=== PATIENT | male | born 1930 | race Caucasian/White ===

== ENCOUNTER 2019-06-04 07:53 | Inpatient (IN) | payer OTHER ==
[~2019-06-04] VITALS: Ht 152.4 cm; Wt 56.6 kg
[2019-06-04] VITALS (25 sets, daily range): BP systolic 82–126; BP diastolic 35–70
[~2019-06-04 07:53] MED LIST: METFORMIN HCL500 MG PO; ZYRTEC10 M4 PO
[2019-06-04 08:17] LABS: ABSOLUTE NEUTROPHILS 14.3 thou/uL (1.4-8.2); BASOPHILS 0.5 % (0.0-2.0); EOSINOPHILS 0.1 % (0.0-3.0); HEMATOCRIT 43.1 % (42.0-52.0); HEMOGLOBIN 13.9 gm/dL (14.0-18.0); LYMPHOCYTES 5.6 % (24.0-44.0); MCH 29.1 pg (26.0-34.0); MCHC 32.2 g/dL (28.0-37.0); MCV 90.5 fL (80.0-100.0); MONOCYTES 5.2 % (1.0-8.0); PLATELET COUNT 310 thou/uL (150-400); POLYS 88.6 % (36.0-66.0); RBC 4.77 mil/uL (4.50-6.00); RDW 14.5 % (10.5-14.5); WBC 16.1 thou/uL (4.0-11.0)
[2019-06-04 08:31] LABS: CALCIUM 9.5 mg/dL (8.5-10.1); CREATININE 1.8 mg/dL (0.7-1.3); POTASSIUM 4.4 mmol/L (3.5-5.1)
[2019-06-04 08:42] LABS: ALBUMIN 3.2 g/dL (3.4-5.0); MAGNESIUM 1.9 mg/dL (1.8-2.4); TOTAL BILIRUBIN 1.5 mg/dL (<0.1-1.0); TOTAL PROTEIN 7.5 g/dL (6.4-8.2)
[2019-06-04 08:45] LABS: TROPONIN-I 3.25 ng/mL (<0.06)
[2019-06-04 09:07] LABS: APTT 29.7 Seconds (24.5-32.8); INR 1.2
[2019-06-04 11:18] LABS: BE(vivo) -12.2 mmol/L (-2 to +3); HCO3 14.2 mmol/L (22.0-26.0); PCO2 34.4 mmHg (35.0-45.0); sO2 99.8 % (92.0-98.0)
[2019-06-04 11:19] LABS: pH 7.235 (7.360-7.450)
[2019-06-04 14:48] LABS: HCO3 18.7 mmol/L (22.0-26.0); PCO2 34.8 mmHg (35.0-45.0); PO2 245.7 mmHg (80.0-100.0); pH 7.349 (7.360-7.450); sO2 99.5 % (92.0-98.0)
[2019-06-04 14:59] LABS: CALCIUM 8.3 mg/dL (8.5-10.1); CREATININE 1.9 mg/dL (0.7-1.3); POTASSIUM 4.4 mmol/L (3.5-5.1)
--- NOTE | 2019-06-04 16:13 | NUR ---
VASCULAR ACCESS CONSULTED FPR PICC LINE BUT AFTER CHECKING WITH , CVAD PREFERED. DISCUSSED BENEFITS AND RISK WITH PT'S ,VERBALIZED UNDERSTANDING. RIJ WAS WIDELY PATENT WITH USG, HAD DIFFICULTY PASSING GUIDEWIRE ON 1ST ATTEMPT. HAD TO RESTICK RIJ. 25CM 6FR TL JACC INSERTED TO 6CM EXTERNAL WITH BRISK BR. STAT CXR ORDERED
--- NOTE | 2019-06-04 17:13 | NUR ---
CENTRAL LINE PULLED BACK FOR TOTAL OF 12CM EXTERNAL. 2ND CXR ORDERED STAT
--- NOTE | 2019-06-04 18:00 | NUR ---
CXR CONFIRMED RIJ IN SVC, RELEASED TO VANE DHALIWAL FOR IMMEDIATE USE PER PROTOCOL
--- NOTE | 2019-06-04 19:54 | NUR ---
PATIENT ADMITTED FROM [facility] POST-PROCEDURE AT 1035. BEDSIDE ASSESSMENT COMPLETED, FAMILY UPDATED ON PLAN. PATIENT ANXIOUS AND STARTED ON PROPOFOL. SINUS TACHYCARDIA ON TECHNICAL ARCHITECT. RIGHT GROIN SHEATH INTACT, VITAL SIGNS CLOSESLY MONITORED. HUA INSERTED IN [facility], PATIENT HAD NO OUTPUT THROUGHT THE SHIFT. DR. LAY MADE AWARE AND STATED HE WILL SEE PATIENT IN THE MORNING. DR. KRAFT AND DR. MULTANI UPDATED ON PATIENT'S CONDITION. PATIENT ON IV BLOOD PRESSURE SUPPORT TO KEEP MAP ABOVE 60. SPUTUM CULTURES ATEMPTED BUT WAS UNSUCCESSFUL. REPORT GIVEN TO ONCOMING RN. NO SIGNS OF ACUTE DISTRESS NOTED AT THIS TIME. WILL CONTINUE TO MONITOR.
[2019-06-04 21:36] LABS: URINE BILIRUBIN NEGATIVE (Negative); URINE BLOOD 3+ (Negative); URINE CLARITY CLEAR; URINE COLOR YELLOW; URINE GLUCOSE-RANDOM* NEGATIVE (Negative); URINE KETONES TRACE (Negative); URINE LEUKOCYTES-REFLEX NEGATIVE (Negative); URINE NITRITE-REFLEX NEGATIVE (Negative); URINE PROTEIN (DIPSTICK) 1+ (Negative); URINE UROBILINOGEN 0.2 E.U./dl (0.2-1.0)
[2019-06-04 21:49] LABS: CRYSTALS None Seen /LPF (None Seen); URINE RBC 3-10 Few /HPF (0-2)
[2019-06-04 21:50] LABS: BACTERIA-REFLEX 1-9 Few /HPF (None Seen); HYALINE CASTS 0-3 Few /LPF (None Seen); SQUAMOUS 4-10 Moderate /LPF (0-3); URINE WBC-REFLEX None Seen /HPF (0-5)
[2019-06-05] VITALS (72 sets, daily range): BP systolic 82–115; BP diastolic 40–65
[2019-06-05 05:02] LABS: ALBUMIN 2.5 g/dL (3.4-5.0); ANION GAP 11 mmol/L (7-16); BUN 31 mg/dL (7-18); CALCIUM 8.3 mg/dL (8.5-10.1); CHLORIDE 95 mmol/L (98-107); CHOLESTEROL 142 mg/dL (<200); CO2 24 mmol/L (21-32); CREATININE 2.1 mg/dL (0.7-1.3); GLUCOSE 136 mg/dL (74-106); HDL CHOLESTEROL 61 mg/dL (>40); LDL CHOLESTEROL 59 mg/dL (<100); SGOT 1243 U/L (15-37); SGPT 500 U/L (30-65); SODIUM 130 mmol/L (136-145); TC:HDL 2.3 Ratio (Not establshd); TOTAL BILIRUBIN 0.8 mg/dL (<0.1-1.0); TOTAL PROTEIN 6.4 g/dL (6.4-8.2); TRIGLYCERIDE 110 mg/dL (<150); VLDL 22 mg/dL (<40)
[2019-06-05 05:30] LABS: SERUM ASSESSMENT Clear
[2019-06-05 05:36] LABS: ABSOLUTE NEUTROPHILS 10.9 thou/uL (1.4-8.2); BASOPHILS 0.6 % (0.0-2.0); EOSINOPHILS 0.1 % (0.0-3.0); HEMOGLOBIN 12.6 gm/dL (14.0-18.0); LYMPHOCYTES 11.8 % (24.0-44.0); MCH 29.1 pg (26.0-34.0); MCHC 32.3 g/dL (28.0-37.0); MCV 90.2 fL (80.0-100.0); PLATELET COUNT 295 thou/uL (150-400); POLYS 76.5 % (36.0-66.0); RBC 4.32 mil/uL (4.50-6.00); WBC 14.2 thou/uL (4.0-11.0)
[2019-06-05 06:13] LABS: TROPONIN-I > 200.00 ng/mL (<0.06)
--- NOTE | 2019-06-05 06:40 | NUR ---
Received report and assumed patient care. Patient noted to be on Propofol and only responds to pain but does not open eyes. Patient is also on Levophed. Patient remained stable throughout and no acute changes were noted.
--- NOTE | 2019-06-05 10:31 | 2DMMODE ---
[facility] [place] [address] [address] 2 D/M-MODE ECHOCARDIOGRAM Name: ANDREA CRUZ Room #: 238-P ADM IN M.R.#: [id number] Admission: 06/04/19 Attend Phys: Clarence Garcia, Discharge: Date of : [birth year] Report #: [id number] THIS REPORT FOR: //name// APPROVED REPORT Study performed: 06/04/2019 10:02:51 EXAM: Comprehensive 2D, Doppler, and color-flow Echocardiogram Patient Location: [facility] Room #: 2 Status: stat BSA: 1.73 HR: 130 bpm BP: 130/68 mmHg Rhythm: Tachycardia Other Information Study Quality: Technically Limited Indications Aortic Valve Disease Mitral Valve Disease STEMI, S^P Code 2D Dimensions LVOT Diam: 17.94 (18-24mm) IVC: 21.00 mm Aortic Valve AoV Peak Harvey.: 3.06 m/s AO Peak Gr.: 37.35 mmHg LVOT Max P.02 mmHg AO Mean Gr.: 23.08 mmHg LVOT Mean P.01 mmHg AO V2 Mean: 2.33 m/s LVOT Max V: 0.71 m/s AO V2 VTI: 46.12 cm LVOT Mean V: 0.46 m/s SOCORRO (VTI): 0.61 cm2 LVOT V1 VTI: 11.13 cm SOCORRO Vmax: 0.59 cm2 SV (LVOT): 28.12 mL Mitral Valve MV Peak Gr.: 14.61 mmHg MV Mean Gr.: 6.67 mmHg MV Max Harvey.: 1.91 m/s MV Mean Harvey.: 1.16 m/s MV VTI: 225.56 mm MVA VTI: 124.65 mm2 [facility] [address] [place] [address] 2 D/M-MODE ECHOCARDIOGRAM Name: ANDREA CRUZ Room #: 238-P [facility] IN [facility].#: [id number] Admission: 06/04/19 Attend Phys: Clarence Garcia, Discharge: Date of : [birth year] Report #: [id number] MV PHT: 40.72 ms MVA (PHT): 5.40 cm2 Tricuspid Valve TR Peak Harvey.: 2.87 m/s TR Peak Gr.: 32.89 mmHg PA Pressure: 48.00 mmHg Left Ventricle The left ventricle is normal size. There is global hypokinesis of the left ventricle. There is akinesis in the inferior wall. There is normal left ventricular wall thickness. Left ventricular ejection fraction is moderate decreased. LVEF is 35%. This study is not technically sufficient to allow evaluation of the LV diastolic function. Right Ventricle The right ventricle is normal size. The right ventricular systolic function is normal. Catheter is present in the right ventricle. Atria Left atrium is dilated. The right atrium size is normal. Aortic Valve The aortic valve is normal in structure. Aortic valve is heavily calcified. Mild aortic regurgitation. Severe aortic stenosis..6-.7 cm2 Mitral Valve The mitral valve is normal in structure. There is mitral annular calcification. Mitral valve leaflets are calcified. Moderate mitral regurgitation. Moderate mitral stenosis. Tricuspid Valve The tricuspid valve is normal in structure. There is mild to moderate tricuspid regurgitation. Estimated PAP 48 mmHg. There is moderate pulmonary hypertension. Pulmonic Valve Pulmonic valve is not well visualized. Great Vessels The aortic root is normal in size. The inferior vena cava is dilated with no inspiratory collapse. Pericardium [facility] [address] [place] [address] 2 D/M-MODE ECHOCARDIOGRAM Name: ANDREA CRUZ Room #: 238-P ADM IN M.R.#: [id number] Admission: 06/04/19 Attend Phys: Clarence Garcia, Discharge: Date of : [birth year] Report #: [id number] There is no pericardial effusion. <Conclusion> The left ventricle is normal size. There is global hypokinesis of the left ventricle. There is akinesis in the inferior wall. LVEF is 35%. This study is not technically sufficient to allow evaluation of the LV diastolic function. The right ventricle is normal size. Catheter is present in the right ventricle. Left atrium is dilated. The aortic valve is normal in structure. Aortic valve is heavily calcified. Mild aortic regurgitation. Severe aortic stenosis..6-.7 cm2 The mitral valve is normal in structure. There is mitral annular calcification. Mitral valve leaflets are calcified. Moderate mitral regurgitation. Moderate mitral stenosis. There is mild to moderate tricuspid regurgitation. Estimated PAP 48 mmHg. There is moderate pulmonary hypertension. The aortic root is normal in size. There is no pericardial effusion. <ELECTRONICALLY SIGNED> By: Clarence Garcia MD, FACC 06/05/19 1030 1030 1030 Clarence Garcia MD, FACC /INF
--- NOTE | 2019-06-05 18:00 | NUR ---
AFIB RVR DR. KRAFT NOTIFIED. ORDERS GIVEN
--- NOTE | 2019-06-05 20:09 | NUR ---
REPORT RECEIVED VSS SEE CHARTING. MDS AT BEDSIDE POC DISCUSSED, PT NOT FOLLOWING COMMANDS. LASIX GTT INCREASED URINE OUTPUT INCREASED. PROGRESSING TOWARDS GOALS.
[2019-06-06 04:38] LABS: BASOPHILS 0.5 % (0.0-2.0); EOSINOPHILS 0.1 % (0.0-3.0); HEMATOCRIT 37.9 % (42.0-52.0); HEMOGLOBIN 12.6 gm/dL (14.0-18.0); LYMPHOCYTES 9.4 % (24.0-44.0); MCH 29.5 pg (26.0-34.0); MCHC 33.2 g/dL (28.0-37.0); MCV 88.9 fL (80.0-100.0); PLATELET COUNT 268 thou/uL (150-400); RBC 4.26 mil/uL (4.50-6.00); RDW 14.6 % (10.5-14.5); WBC 13.3 thou/uL (4.0-11.0)
[2019-06-06 04:53] LABS: ALBUMIN 2.2 g/dL (3.4-5.0); CALCIUM 8.2 mg/dL (8.5-10.1); CREATININE 2.2 mg/dL (0.7-1.3); PHOSPHORUS 4.7 mg/dL (2.5-4.9); POTASSIUM 3.8 mmol/L (3.5-5.1)
--- NOTE | 2019-06-06 06:26 | NUR ---
Received report and assumed patient care. Patient continues to be on the ventilator with propofol infusing. Also, Levophed is infusing and being titrated to keep MAP >60 as ordered. Patient noted to be jaundiced with cool extremities and cyanotic fingertips. Patient monitored closely for any signs of distress.
--- NOTE | 2019-06-06 10:00 | NUR ---
PT CRYING STATED HE WOULD NOT HAVE WANTED ALL OF THIS. EMOTIONAL SUPPORT GIVEN. SPOKE TO ABOUT CODE STATUS. SHE REQUESTED PT BE A DNR. VERBALIZED UNDERTANTDING OF THAT. DR. MAR CALLED. ORDERS GIVEN FOR DNR.
--- NOTE | 2019-06-06 11:12 | NUR ---
PT DAUGHTER HERE. UPSET THAT SHE WASN'T INCLUDED IN THE DECISION FOR DNR. FAMILY FIGHTING WITH EACH OTHER. EMOTIONAL SUPPORT GIVEN. PT DAUGHTER SEEMS TO BE OK WITH DNR AFTER EXPLAINING IT TO HER HOWEVER SHE MADE A COMMENT TO THE ABOUT DISCONNECTING EVERYTHING.
--- NOTE | 2019-06-06 16:00 | NUR ---
DR. REED CALLED TO GET UPDATE ON PT. REPORTED URINE OUTPUT AND GENERAL UPDATE. NO NEW ORDERS.
--- NOTE | 2019-06-06 17:01 | NUR ---
DR. MAR CALLED. RE LACTATE 3.5 AND + SEPSIS SCREEN. REPORTED THAT DR. STEWART FELT THAT THE PT WAS NOT SEPTIC YESTERDAY. ALSO REPORTED PT HAS BEEN OFF DIPRIVAN SINCE 0700 AND IS NON-RESPONSIVE. ONLY A SLIGHT GRIMACE AND WITHDRAWS FROM PAIN. OCCASTIONAL SPONTANEOUS MOV'T OF LES. ORDERS GIVEN FOR EEG IN AM AND MD STATES HE WILL CONSULT NEURO IN AM.
--- NOTE | 2019-06-06 17:15 | NUR ---
PT NOT PROGRESSING TOWARDS LOC GOALS. REMAINS UNRESPONSIVE OFF SEDATION. BP BETTER, LEVOPHED WEAN DOWN TO 18MCG/MIN. PT NOT PROGRESSING TOWARDS BREATHING GOALS, REMAINS ON FULL SUPPORT OF THE VENT. NEURO CONSULT AND EEG IN AM. FAMILY REALISTIC, MADE DNR TODAY. EMOTIONAL SUPPORT GIVEN. LACTATE UP, BUT DR. MAR FEELS THE PT IS NOT SEPTIC.
--- NOTE | 2019-06-06 19:45 | CATHLAB ---
[facility] [address] [place] [address] INVASIVE PROCEDURE REPORT Name: ANDREA CRUZ Room #: 238-P [facility] IN .R.#: [id number] Admission: 06/04/19 Attend Phys: Clarence Garcia, Discharge: Date of : [birth year] Report #: [id number] THIS REPORT FOR: //name// APPROVED REPORT Study performed: 06/04/2019 08:59:16 Patient Details Patient Status: ED Room #: The patient is a 88 year-old male Event Personnel Clarence Garcia Top Lift Compressor, Merly Maya RN RN, Randa Morrow RTR, Yudith Hogan David Monitor Procedures Performed Coronaries Angiography w/Rt Heart Cath [id number] RHCWCOR BRAD Revasc AMI Total/Sub Single Left Main C9606 AMIREVSING Indication Chest pain Procedure Narrative The Right Groin^ was infiltrated with 1% Lidocaine subcutaneous anesthesia. A PINNACLE 6FR Sheath #[id number] sheath was inserted into the . Coronary angiography was performed using coronary diagnostic catheters. The right coronary system was accessed and visualized with a JR4 catheter. Intraoperative Conscious Sedation Sedation start time: 9.25 Case end Time: 10.20 Fluoro Time: 8.42 minutes Dose: DAP 8084.00 cGycm2 937 mGy Contrast Type and Amount: Visipaque 110 ml Hemodynamics The right atrial mean pressure is 7 mmHg. The right ventricular pressure is 69/7 mmHg. The pulmonary artery pressure is 68/47 mmHg with a mean of 51 mmHg. The mean pulmonary capillary wedge pressure is 36 mmHg. The aortic pressure is 154/90 mmHg with a mean of mmHg. PCI Technique Lesion A LAUNCHER 6FR EBU 3.5 #[id number] Guide Catheter was used to engage the ostium. A Luge Wire .014 x 182CM #[id number] Interventional Guidewire was [facility] [employer] [address] INVASIVE PROCEDURE REPORT Name: ANDREA CRUZ Room #: 238-P [facility] IN .R.#: [id number] Admission: 06/04/19 Attend Phys: Clarence Garcia, Discharge: Date of : [birth year] Report #: [id number] used to cross the lesion. BALLOON DILATION A Balloon catheter Sprinter OTW 2.25 x 12 #[id number] was inserted and inflated up to 18atm for 14seconds. Additional Inflation: 18atm for 7seconds. STENT DEPLOYMENT A xjxg-thqkwbidruk-hncxxji stent RESOLUTE LUÍS OTW 2.75 X 8 #[id number] was inserted and inflated up to 22atm for 17seconds. PCI Technique Lesion 2 Percutaneous Coronary Intervention was performed on the LM. Conclusion #1 successful PTCA stent emergent subtotaled left main lesion placement of a 2.75 x 8 resolute drug-eluting stent postdilated 2.9 mm. Prior to this with initial balloon inflation CPR with administration of ACLS protocol epinephrine atropine for restorationism of rhythm. #2 LAD is moderate disease heavily calcified but able to restore flow via this left main stent with moderate area of distribution. #3 significant circumflex OM disease although there was restorationism of flow in this vessel after left main stenting. #4 dominant right coronary is occluded and filled via some collateral filling from the left system. #5 successful CPR ACLS administration of epinephrine and atropine per protocol for restorationism of rhythm and brought pressure with initial intervention to subtotaled left main only remaining circulation through this. Patient with impending cardiogenic shock upon entering the catheterization lab. #6 successful right heart catheterization with Greenleaf-Sharda left in for monitoring purposes. Proceed to ICU Recommendations and plan: No indication or attempted further intervention. Severe LAD circumflex disease but restorationism of flow via the subtotaled left main. Aggressive diuresis pulmonary support patient emergently intubated prior to initiating procedure in the catheterization lab <ELECTRONICALLY SIGNED> By: Clarence Garcia MD, FACC 06/06/191943 43 43 Clarence Garcia MD, FACC /INF
[2019-06-07 00:50] LABS: CALCIUM 8.2 mg/dL (8.5-10.1); CREATININE 2.3 mg/dL (0.7-1.3); MAGNESIUM 1.8 mg/dL (1.8-2.4); POTASSIUM 3.4 mmol/L (3.5-5.1)
--- NOTE | 2019-06-07 05:08 | NUR ---
ASSUMED CARE OF PATIENT AT 1900. VSS, LEVOPHED TITRATED PER DOCUMENTATION. 20 BEAT RUN OF QUOC PIKE NOTIFIED, ORDERS RECIEVED. AMIODARONE GTT RESUMED. PATIENT NOW DIURESING VERY WELL. WORKING TOWARDS POC GOALS.
[2019-06-07 07:02] LABS: ALBUMIN 2.3 g/dL (3.4-5.0); CALCIUM 8.6 mg/dL (8.5-10.1); CREATININE 2.3 mg/dL (0.7-1.3); PHOSPHORUS 3.8 mg/dL (2.5-4.9); POTASSIUM 4.3 mmol/L (3.5-5.1)
--- NOTE | 2019-06-07 11:15 | NUR ---
ASSUMED CARE @ 0700 06/07/19, PT ASSESSMENTS AND VSS COMPLETE PER ICU PROTOCOL. VERBAL ORDERS TO TAKE OUT SWAN PER DR KRAFT AND DR MAR, TAKEN OUT @ 1000, NO COMPLICATIONS NOTED.
--- NOTE | 2019-06-07 11:54 | NUR ---
INITIAL ASSESSMENT: Reviewed chart and spoke with nursing and attending physician. Pt was admitted from home. Kevin watts called in laborer beam house. Pt is currently in ICU and intubated and sedated. Pt is on IV lasix/IV abx/amiodorone gtt. Neuro consulted and EEG done earlier today. SW met with pt's at bedside. Introduced role of SW. Pt and live in their ranch style home. No steps to enter the home. No steps inside the home. Pt's states that they do have a basement, but pt does not need to go to the basement. No hx of home health services or post-acute placement. Pt's PCP is Dr. Keon Shelton at [facility]. No weekend discharge planned. Therapy to be ordered to evaluate pt pending his progress and ablility to participate with therapy. SW is following to assist as needed with discharge planning.
--- NOTE | 2019-06-07 13:44 | EEG ---
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 EEG was done by placing the electrode by standard 10-20 system of electrode placement. Both referential and sequential montages were used for recording. Background activity in this patient's EEG is about 4 Hz and 10 microvolt. Photic stimulation was unremarkable. IMPRESSION: This is a severely abnormal EEG consistent with encephalopathy. However, well-defined cortical activity is present at the moment. No active epileptiform activity was noticed. Thank you very much for this referral. <ELECTRONICALLY SIGNED> By: Jon Mathew MD 06/07/19 1344 1020 1028 Jon Mathew MD /nt
--- NOTE | 2019-06-07 14:53 | EKG ---
[address] [address] ELECTROCARDIOGRAM REPORT Name: ANDREA CRUZ Room #: 238-P ADM IN M.R.#: [id number] Admission: 06/04/19 Attend Phys: Clarence Garcia MD, Discharge: Date of : [birth year] Report #: [id number] THIS REPORT FOR: //name// [facility] ED Test Date: 2019-06-04 Test Time: 07:54:40 Pat Name: ANDREA CRUZ Department: Room: [facility] Gender: M Flat[place] Feeder: ALFREDO : 1930 Requested By: Philippe Zepeda Order Number: [id number] MD: Con Couch Measurements Intervals [place] Rate: 117 P: 0 NH: 117 QRS: -91 QRSD: 130 T: 58 QT: 374 QTc: 522 Interpretive Statements Sinus tachycardia RBBB and LAFB No previous ECG available for comparison Electronically Signed On 06-07-2019 14:52:35 BUSINESS DEVELOPMENT ENGINEER by Con Couch [email or web address] <ELECTRONICALLY SIGNED> By: Con Couch MD 06/07/19 1452 0754 0754 Con Couch MD /JULIETH
[2019-06-08] VITALS (8 sets, daily range): BP systolic 97–105; BP diastolic 53–73
[2019-06-08 05:07] LABS: ALBUMIN 2.3 g/dL (3.4-5.0); CALCIUM 8.6 mg/dL (8.5-10.1); CREATININE 2.3 mg/dL (0.7-1.3); POTASSIUM 4.5 mmol/L (3.5-5.1)
--- NOTE | 2019-06-08 07:52 | NUR ---
pt following commands only in right hand. pt on levophed, amiodarone and lasix drip. pt's bilateral hands are cold and dusky. pt blood glucose greater than 200 in two consecutive blood glucose check at night. Report given to ISRA Campbell. pt slowly progressing towards goals.
--- NOTE | 2019-06-08 18:36 | NUR ---
PATIENT SPONTANEOUSLY OPENS EYES AND GRIMACE WHEN MOVEMENT, DOES NOT FOLLOW COMMANDS. ON VENTILATOR 30%FIO2, WEANING TRIAL COMPLETED FOR 5 MINUTES AND PATIENT DID NOT TOLERATE WELL. PLAN OF CARE DISCUSSED WITH FAMILY BY DR. SINCLAIR AND DR. MULTANI. FAMILY IS AWARE THAT THE PROGNOSIS IS POOR. LEVOFED GTT FOR BLOOD PRESSURE SUPPORT, MAP REMAINED ABOVE 60. IV AMIODARONE INFUSING, PATIENT SINUS RHYTHM WITH PVCS. TOLERATING TUBE FEEDING WITH LOW RISEDUALS. NO SIGNS OF ACUTE DISTRESS NOTED AT THIS TIME. WILL CONTINUE TO MONITOR.
[2019-06-08 22:07] LABS: ADENOVIRUS Negative (Negative); INFLUENZA A Negative (Negative); INFLUENZA B Negative (Negative); METAPNEUMOVIRUS Negative (Negative); PARAINFLUENZA 1 Negative (Negative); PARAINFLUENZA 2 Negative (Negative); PARAINFLUENZA 3 Negative (Negative); RHINOVIRUS Negative (Negative); RSV A Negative (Negative); RSV B Negative (Negative)
[2019-06-09] VITALS (24 sets, daily range): BP systolic 70–106; BP diastolic 41–62
[2019-06-09 01:22] LABS: ALBUMIN 2.2 g/dL (3.4-5.0); CALCIUM 8.3 mg/dL (8.5-10.1); CREATININE 2.8 mg/dL (0.7-1.3); PHOSPHORUS 4.2 mg/dL (2.5-4.9); POTASSIUM 3.9 mmol/L (3.5-5.1)
--- NOTE | 2019-06-09 01:41 | NUR ---
BGL was checked at midnight, he is on levophed and has cyanotic fingers, but the sample gave a false low reading. He received treatment, of D50 and another sample was obtained, which also read low. A third sample was taken from his central line and showed an elevated reading. A call was placed to the nurse practioner to inform her of the results and actions taken. Will continue to monitor.
--- NOTE | 2019-06-09 11:10 | NUR ---
SPOKE WITH FAMILY. THEY ARE WANTING TO EXTUBATE AND MAKE PALLITIVE CARE BUT ARE WAITING ON NEUROLOGY. DR. MAR AWARE. NO STICKS PER FAMILY REQUEST. EMOTIONAL SUPPORT GIVEN.
--- NOTE | 2019-06-09 12:00 | NUR ---
FAMILY WANTS TO GO TO PALLIVIVE CARE NOW PRIOR TO NEUROLOGY COMING. DR. MAR AND AND DR SMITH CALLED. DR. MULTANI AND DR. PEREZ FINE WITH FAMILY DECISION. AWAITING CALL BACK FROM DR. MAR.
--- NOTE | 2019-06-09 13:00 | NUR ---
[address] MAR AGAIN ORDERS GIVEN. MORPINE 4MG SIVP GIVEN WILL START GTT WHEN IT ARRIVES. SEE MAR FOR EXACT TIMES.
--- NOTE | 2019-06-09 13:20 | NUR ---
PT EXTUBATED. MORPHINE GTT INFUSION AT 1MG /HR. FAMILY AT BEDSIDE. EMOTIONAL SUPPORT GIVEN.
--- NOTE | 2019-06-09 18:21 | NUR ---
PT PROGRESSING TOWARDS PALLITIVE CARE GOALS.
[2019-06-10] VITALS (12 sets, daily range): BP systolic 61–70; BP diastolic 29–42
--- NOTE | 2019-06-10 06:21 | NUR ---
PT ON COMFORT CARE. DOESN'T FOLLOW COMMANDS. NO PURPOSEFUL MOVEMENT NOTED. ON MORPHINE GTT TITRATED FOR COMFORT. INFORMED THIS AM ABOUT PT HR DROPPING FROM THE 80S TO 60S, UPDATED THEM ABOUT CARE. WILL CONTINUE TO MONITOR
--- NOTE | 2019-06-10 11:13 | NUR ---
Assumed care at 0700. PT is non responsive however he appears comfortable. arrived to unit and stayed at bedside. Dr. Robertson rounded on PT. At 1000 PT's heart rate and respirations were noted to slow. At 1018 PT became asystole. No heart tones or breath sounds ausculated. PT pronounced at 1018 by two RN's per Dr. Robertson's order. PT's spouse at bedside was notified at time of . playground supervisor was on unit and notified of TOD. Admitting and consulting providers notified. Rule transplant was contacted at 1025. PT is not elgible for tissue or organ donation per [place]. Son and daughter arrived. Pastoral care contacted and came to visit with family. PT's body will be prepared per post mortem protocol.
--- NOTE | 2019-06-27 08:35 | HC ---
[facility] [place] [place] [address] CONSULTATION Name: ANDREA CRUZ Room #: 238-P [facility] IN M.R.#: [id number] Admission: 06/04/19 Attend Phys: Clarence Garcia MD, Discharge: 06/10/19 Date of : [birth year] Report #: [id number] THIS REPORT FOR: //name// CC: FAM unknown Clarence Garcia DATE OF SERVICE: 06/05/2019 REASON FOR CONSULTATION: Elevated creatinine. REASON FOR THE PRESENTATION: Chest pain. HISTORY OF PRESENT ILLNESS: History of present illness is obtained from the medical record. The patient is an 88-year-old with past medical history of prostate cancer remotely, diabetes mellitus, presented with ST elevated MT and cardiogenic shock. He was taken to the laborer cheesemaking. He required mechanical ventilation. CPR was initiated. He had a stent placed into his left main artery. Resuscitation was successful. He was also found to have very significant aortic stenosis. The patient was taken to the ICU after that. Creatinine on presentation was 1.8 and had risen to 2.1. He had significant lactic acidosis and significantly elevated troponin. He was not making a lot of urine in the last 24 hours prompting Nephrology consultation. PAST MEDICAL HISTORY: 1. Per the medical records. 2. Diabetes mellitus. 3. Prostate cancer in remission. REPORTED MEDICATIONS: In the medical records outpatient: 1. Metformin. 2. Zyrtec. FAMILY HISTORY: Unable to obtain given the patient's mental status. SOCIAL HISTORY: Unable to obtain given the patient's mental status. ALLERGIES: No known drug allergies. REVIEW OF SYSTEMS: Unable to obtain given the patient's current mental status. PHYSICAL EXAMINATION: GENERAL: The patient is currently intubated. He is maintained on Levophed, Lasix drip sodium bicarbonate drip, Integrilin. HEAD AND NECK: ET tube in place. [facility] [address] [place] [address] CONSULTATION Name: ANDREA CRUZ Room #: 238-P [facility] IN .R.#: [id number] Admission: 06/04/19 Attend Phys: Clarence Garcia MD, Discharge: 06/10/19 Date of : [birth year] Report #: [id number] CHEST: Bilateral crackles. CARDIOVASCULAR: No rub detected. ABDOMEN: Soft, nontender. EXTREMITIES: Lower extremities, no edema. ASSESSMENT, IMPRESSION AND PLAN: 1. Respiratory failure. 2. ST elevated myocardial infarction. 3. Acute kidney injury. 4. Post-LAD stent. 5. Significant aortic stenosis. 6. Shock liver. This seems to be an acute tubular necrosis related to his cardiogenic shock. The patient was appropriately initiated on Lasix drip. 7. Continue with the Lasix drip. 8. Continue with the vent support. 9. Continue with the vasopressors including Levophed. 10. Discontinue IV fluid. 11. Escalate the dose of his diuretics. 12. No dialysis is indicated and the patient is beginning to make some urine with the improvement in his urine output and his sodium values. 13. It is expected that his creatinine will continue to go up for some time given the acute kidney injury phase he is going through. <ELECTRONICALLY SIGNED> By: Stephanie Johns MD 06/27/19 0835 0727 0739 Stephanie Johns MD /nt
== END 2019-06-10 10:18 | DRG 853 ==
LOC: ER 07:53 → ICU 08:57 → TBACV 09:15 → ICU 10:12
PROVIDERS: Emergency Medicine; Hospitalist; Internal Medicine Pulmonary Disease; Nurse Practitioner Acute Care; Specialist; ADMIT Internal Medicine Cardiovascular Disease
PROC: 4A023N6 Measurement of Cardiac Sampling and Pressure, Right Heart, Percutaneous Approach (ICD-10-PCS; principal; 2019-06-04)
PROC: 0BH17EZ Insertion of Endotracheal Airway into Trachea, Via Natural or Artificial Opening (ICD-10-PCS; principal; 2019-06-04)
PROC: 027034Z Dilation of Coronary Artery, One Artery with Drug-eluting Intraluminal Device, Percutaneous Approach (ICD-10-PCS; principal; 2019-06-04)
PROC: 5A1955Z Respiratory Ventilation, Greater than 96 Consecutive Hours (ICD-10-PCS; principal; 2019-06-04)
PROC: B211YZZ Fluoroscopy of Multiple Coronary Arteries using Other Contrast (ICD-10-PCS; principal; 2019-06-04)
DX: A41.9 Sepsis, unspecified organism (principal); I21.29 ST elevation (STEMI) myocardial infarction involving other sites; J96.21 Acute and chronic respiratory failure with hypoxia; K72.00 Acute and subacute hepatic failure without coma; J69.0 Pneumonitis due to inhalation of food and vomit; E87.1 Hypo-osmolality and hyponatremia; G93.40 Encephalopathy, unspecified; I13.0 Hypertensive heart and chronic kidney disease with heart failure and stage 1 through stage 4 chronic kidney disease, or unspecified chronic kidney disease; N17.9 Acute kidney failure, unspecified; R57.0 Cardiogenic shock; E11.65 Type 2 diabetes mellitus with hyperglycemia; I35.0 Nonrheumatic aortic (valve) stenosis; I50.9 Heart failure, unspecified; E11.22 Type 2 diabetes mellitus with diabetic chronic kidney disease; N18.9 Chronic kidney disease, unspecified; I95.9 Hypotension, unspecified; I48.0 Paroxysmal atrial fibrillation; Z66 Do not resuscitate; I27.20 Pulmonary hypertension, unspecified; I25.5 Ischemic cardiomyopathy; Z85.46 Personal history of malignant neoplasm of prostate; Z79.899 Other long term (current) drug therapy
CPT/HCPCS: 10078; 10203